=== PATIENT | male | born 1955 | race Caucasian/White ===

== ENCOUNTER 2016-10-18 04:57 | Emergency (ER) | payer OTHER ==
[~2016-10-18] VITALS: Ht 175.3 cm; Wt 63.5 kg
--- NOTE | 2016-10-18 05:22 | ED GENERAL ADULT ---
See Addendum History of Present Illness General Chief Complaint: General Adult Stated Complaint: DID NOT FEEL WELL FOR FEW DAYS Source: patient Exam Limitations: no limitations Vital Signs & Intake/Output Vital Signs & Intake/Output Vital Signs Date Time Temp Pulse Resp B/P Pulse O2 O2 Flow FiO2 Ox Delivery Rate 10/18 0849 97.1 68 18 139/72 98 10/18 0620 Room Air 10/18 0517 97.8 97 18 146/90 97 Room Air Allergies Coded Allergies: NO KNOWN ALLERGIES (10/18/16) Triage Note: VOMITING SINCE TUESDAY,WEAKNESS, Triage Nurses Notes Reviewed? yes Onset: Last week Duration: day(s): Timing: multiple episodes today Severity: severe No Modifying Factors: none Associated Symptoms: nausa, SOB, fatigue HPI: Patient is a 61-year-old male who has come to the ED due to to 3 days of nausea vomiting and feeling weak which has been happening for the first time in his life. Patient reports that the vomit was yellowish at first but now it's brownish and in black patient does not report any abdominal pain however he says that he has been on chronic pain and takes methadone and drinks alcohol one small bottle of wine every day. Patient also reports feeling hot and feverish. He doesn't report any coughing, reports shortness of breath mostly happening when he lays down and goes away when he sits up. 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 Patient was on chronic pain medications several years ago and now is on a methadone program however methadone has not been helping the pain and he has started drinking alcohol since a year ago to help alleviate the pain. Patient also has anxiety, elevated blood pressure, a cholesterolemia, also reports that he uses a blood thinner but he doesn't know the name. (CONNIE HALL,[facility]) Injury Environment: home Modifying Factors: Improves With: rest. (JACOBO HALL,SINTIA Mojica) Reconcile Medications Aspirin (Ecotrin*) 81 MG TABLET.DR 1 TAB PO DAILY HEART HEALTH (Reported) Atorvastatin Calcium 80 MG TABLET 1 TAB PO DAILY CHOLESTEROL (Reported) Lisinopril 5 MG TABLET 1 TAB PO DAILY HEART (Reported) Metoprolol Succinate 50 MG TAB.ER.24H 1 TAB PO DAILY HEART (Reported) (FREDDY MORTON,KRISTIE MitchellJayce) Past History Travel History Traveled to [place] past 21 day No Medical History Any Pertinent Medical History? see below for history Neurological: NONE EENT: NONE Cardiovascular: hypertension, hyperlipidemia, STEMI, history of myocardial infarction 3 years ago status post stent placement Respiratory: NONE Gastrointestinal: NONE Hepatic: NONE Renal: NONE Musculoskeletal: NONE Psychiatric: anxiety Endocrine: NONE Surgical History Surgical History: amputation of the third and fourth fingers of the left hand after an injury at work Psychosocial History What is your primary language German Tobacco Use: Never used ETOH Use: heavy use Illicit Drug Use: marijuana Family History Family History, If Any: FATHER FH: myocardial infarction Premature CAD SISTER FH: myocardial infarction Premature CAD BROTHER FH: myocardial infarction Premature CAD DAUGHTER FH: type 1 diabetes mellitus SON FH: type 1 diabetes mellitus Hx Contributory? Yes (JOSSUE ROSALES MD) Review of Systems Review of Systems Constitutional: Reports: fever, malaise, weakness. Denies: chills, diaphoresis. EENTM: Reports: no symptoms. Respiratory: Reports: short of breath (when laying down). Denies: cough, hemoptysis, orthopnea. Cardiovascular: Denies: chest pain, orthopena, palpitations, peripheral edema, syncope. GI: Reports: nausea, vomiting. Denies: abdominal pain, constipation, diarrhea, bloody stool. Genitourinary: Denies: discharge, dysuria, frequency, hematuria, hesitation, nocturia. Musculoskeletal: Reports: back pain (radiating to the right leg). Denies: joint pain, neck pain. Skin: Reports: no symptoms. Neurological/Psychological: Reports: anxiety, weakness. Denies: depressed, headache, numbness, tingling, tremors. Hematologic/Endocrine: Denies: bruising, bleeding, polyuria, polydipsia. (JOSSUE ROSALES MD) Physical Exam Physical Exam General Appearance: no apparent distress, alert, awake, comfortable, cachetic Head: atraumatic, normal appearance Eyes: Bilateral: PERRL, EOMI, pale conjunctivae, lid inflammation. Ears, Nose, Throat: normal pharynx, normal ENT inspection, hearing grossly normal Neck: normal inspection, supple, full range of motion Respiratory: normal breath sounds, chest non-tender, no respiratory distress Cardiovascular: regular rate/rhythm Peripheral Pulses: 2+ radial (R), 2+ radial (L) Gastrointestinal: normal bowel sounds, soft, non-tender Back: normal inspection, normal range of motion, no vertebral tenderness, no CVA tenderness Extremities: normal inspection, normal capillary refill, normal range of motion, no edema Neurologic/Psych: no motor/sensory deficits, awake, alert, oriented x 3, normal gait Core Measures ACS in differential dx? Yes CVA/TIA Diagnosis: No Severe Sepsis Present: No Septic Shock Present: No (JOSSUE ROSALES MD) Progress Differential Diagnoses I considered the following diagnoses in my evaluation of the patient: [Erosive gastritis, upper GI bleeding, pancreatitis, hepatitis] (JOSSUE ROSALES MD) Differential Diagnoses I considered the following diagnoses in my evaluation of the patient: Plan of Care: Orders Procedure Date/time Status EKG 10/18 0953 Active Add-on Test (ER Only) 10/18 0950 Active LACTIC ACID 10/18 0906 Complete Add-on Test (ER Only) 10/18 0634 Active EKG 10/18 0616 Active TROPONIN LEVEL 10/18 0614 Complete MAGNESIUM 10/18 06 Complete ETHANOL 10/18 0614 Complete AMYLASE 10/18 0614 Complete LIPASE 10/18 605 Complete LACTIC ACID 10/18 605 Complete HEPATIC FUNCTION PANEL 10/18 605 Complete CBC WITHOUT DIFFERENTIAL 10/18 605 Complete BASIC METABOLIC PANEL 10/18 605 Complete Laboratory Tests 10/18/16 0850: Lactic Acid 1.6 10/18/16 0616: Amylase Cancelled 10/18/16 0614: Anion Gap 14, Estimated GFR > 60, BUN/Creatinine Ratio 24.3, Glucose 91, Lactic Acid 2.2 H, Calcium 8.7, Magnesium 1.9, Total Bilirubin 1.5 H, Direct Bilirubin 0.5 H, AST 257 H, ALT 143 H, Alkaline Phosphatase 81, Troponin I 0.02, Total Protein 7.8, Albumin 4.4, Amylase 64, Lipase 120, CBC w Diff NO MAN DIFF REQ, RBC 4.07 L, MCV 97.1 H, MCH 32.7 H, RDW 14.9 H, MPV 9.0, Gran % 72.0, Lymphocytes % 18.7 L, Monocytes % 9.1, Eosinophils % 0.1, Basophils % 0.1 , Absolute Granulocytes 4.0, Absolute Lymphocytes 1.0 L, Absolute Monocytes 0.5 , Absolute Eosinophils 0, Absolute Basophils 0, PUBS MCHC 33.6, Serum Alcohol 135.0 10/18/16 0608: Troponin I Cancelled Initial ED EKG: pending Hand-Off Endorsed To: KRISTIE HAYES DO Endorsed Time: 0700 Pending: CT, labs (JACOBO HALL,SINTIA Mojica) Differential Diagnoses I considered the following diagnoses in my evaluation of the patient: (KRISTIE HAYES DO) Departure Departure Condition: Stable Referrals: PATIENT HAS NO PRIMARY CARE DR (PCP/Family) Departure Forms: Customer Survey General Discharge Information (CONNIE HALL,[facility]) Departure Disposition: STILL A PATIENT Clinical Impression Primary Impression: Abdominal pain Secondary Impressions: Nausea and vomiting Resident Co-Sign Statement Statement: ED Attending supervision documentation- [X] I saw and evaluated the patient. I have also reviewed all the pertinent lab results and diagnostic results. I agree with the findings and the plan of care as documented in the Resident's documentation. Pt with nausea and vomiting x 3 days, feeling weak. benign exam, mild mid epigastric tenderness to palpation.... ?gastro vs other bowel pathology... will check labs, ct scan, give supportive measures.... pt signed out to dr. hayes, 7am, 10.18.16 [] I have reviewed the ED Record and agree with the Resident's documentation. [] Additions or exceptions (if any) to the Resident's note and plan are summarized below: [] (JACOBO HALL,SINTIA Mojica) Departure Comments 10/18/16 10 AM 61-year-old male presents to the emergency department with nausea and vomiting and abdominal pain. He has a history of alcohol abuse and is currently in a methadone program. He denies any chest pain or shortness of breath. 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 EKG revealed minimal QT prolongation. This was repeated and is unchanged. Magnesium level was added on. I will empirically treat him with magnesium. He was instructed to follow-up with the doctor this week. Also to follow up with GI. The patient did not feel he needed help in an alcohol dependency program. The CT results were reviewed with the patient he was informed about the iliac artery aneurysm. He was also told to take magnesium as directed over-the- counter and also Prevacid as directed. He was instructed to follow-up with [facility] faculty practice and call for an appointment this week and to call for an appointment with the engine buildup mechanic. CT results reviewed with patient. He was informed of the aneurysm. IMPRESSION: No focal inflammatory process or obstruction. Diffuse fatty infiltration of the liver. 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 Diffuse atherosclerosis. DICTATED BY: LAURA GIBBS MD DATE/TIME DICTATED:10/18/16822 RAILROAD CONSTRUCTION DIRECTOR:DRE DATE/TIME TRANSCRIBED:10/18/16822 CONFIDENTIAL, DO NOT COPY WITHOUT APPROPRIATE AUTHORIZATION. <Electronically signed in Other Vendor System> SIGNED BY: LAURA GIBBS MD 55 Admission Note Documentation of Exam: Documentation of any treatments & extenuating circumstances including Concerns Regarding Discharge (functional status, medication knowledge or non-compliance, living conditions, etc.) that warrant an admission rather than observation: (KRISTIE HAYES DO) Critical Care Note Critical Care Note Critical Care Time: non-applicable (CONNIE HALL,JOSSUE)
[2016-10-18 06:31] LABS: ABSOLUTE BASOPHIL COUNT 0 /CUMM (0.0-0.2); ABSOLUTE EOSINOPHIL COUNT 0 /CUMM (0.0-0.7); ABSOLUTE MONOCYTE COUNT 0.5 /CUMM (0.10-0.60); BASOPHIL % 0.1 % (0.0-2.0); EOSINOPHIL % 0.1 % (0-5); HEMATOCRIT 39.5 % (42-52); MEAN CORPUSCULAR HGB 32.7 PG (27.0-31.0); MEAN CORPUSCULAR HGB CONC 33.6 G/DL (33.0-37.0); MEAN CORPUSCULAR VOLUME 97.1 FL (80.0-94.0); PLATELET COUNT 147 /CUMM (130-400); RBC DISTRIBUTION WIDTH 14.9 % (11.5-14.5); RED BLOOD CELL CT 4.07 /CUMM (4.70-6.10); WHITE BLOOD CELL COUNT 5.6 /CUMM (4.8-10.8)
[2016-10-18] MEDS ORDERED: METOPROLOL SUCC50 M2 PO (08:38)
[2016-10-18] MEDS ORDERED: LISINOPRIL5 M1 PO (08:38)
[2016-10-18] MEDS ORDERED: ASPIRIN EC81 M1 PO (08:39)
[2016-10-18] MEDS ORDERED: ATORVASTATIN CA80 M1 PO (08:39)
--- NOTE | 2016-10-18 08:47 | CT SCAN REPORT ---
EXAMINATION: CT ABDOMEN AND PELVIS WITHOUT CONTRAST CLINICAL INFORMATION: Abdominal pain, vomiting. COMPARISON: None. TECHNIQUE: Multidetector volumetric imaging was performed from the superior aspect of the liver through the pubic symphysis. Sagittal and coronal reformatted images were obtained on the technologist's workstation. DLP: 255 mGy-cm. FINDINGS: LUNG BASES: The visualized lung bases are unremarkable. Calcified epicardial lymph node. LIVER, GALLBLADDER, AND BILIARY TREE: Diffuse fatty infiltration of the liver. The gallbladder is distended with no evidence of radiopaque gallstones, gallbladder wall thickening, or obvious pericholecystic inflammatory changes. PANCREAS: Unremarkable. SPLEEN: Several calcified granulomas. ADRENAL GLANDS: Unremarkable. KIDNEYS AND URETERS: The kidneys are normal in size, shape, and attenuation. No hydronephrosis, hydroureter, or calculi seen. No perinephric stranding. BLADDER: Unremarkable. GASTROINTESTINAL TRACT: The small and large bowel are unremarkable. The appendix is unremarkable. ABDOMINAL WALL: No significant hernia is appreciated. LYMPH NODES: Normal. VASCULAR: There is a left-sided IVC. There is aneurysmal dilatation of the left common iliac artery measuring 2.0 cm in diameter. Atherosclerotic calcifications of the abdominal aorta and iliac arteries. PELVIC VISCERA: Unremarkable. OSSEOUS STRUCTURES: Lumbar levoscoliosis with severe degenerative disc disease at L3-L4 and moderate degenerative disc disease at L4-L5 with mild anterolisthesis and marked left facet arthropathy. Moderate degenerative disc disease at L5-S1 with a posterior disc protrusion. IMPRESSION: No focal inflammatory process or obstruction. Diffuse fatty infiltration of the liver. 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 Diffuse atherosclerosis.
[2016-10-18 08:49] VITALS: BP 139/72
== END 2016-10-18 10:38 ==
LOC: ERH 04:57
PROVIDERS: Ophthalmology
DX: I72.3 Aneurysm of iliac artery (principal); R10.9 Unspecified abdominal pain; R11.2 Nausea with vomiting, unspecified; F10.10 Alcohol abuse, uncomplicated; Z79.891 Long term (current) use of opiate analgesic; F12.10 Cannabis abuse, uncomplicated; I10 Essential (primary) hypertension
CPT/HCPCS: 74176; 93005; 93010; 96361; 96374; 96375; G0480; J2405